=== PATIENT | female | born 2005 | race Hispanic/Latino ===

== ENCOUNTER 2023-10-18 19:34 | Emergency (ER) | payer OTHER, SELFPAY ==
[2023-10-18 20:56] LABS: Bilirubin Neg (Negative); Blood, Urine 25 (Negative); Clarity Cloudy (Clear); Glucose, Urine (Dipstick) Normal (Negative); Ketone, Urine Negative (Negative); Leukocyte 500 (Negative); Nitrite Negative (Negative); Protein, Urine (Dipstick) 15 mg/dl (Neg-Trace); Specific Gravity, Urine 1.015 (1.005-1.030)
[2023-10-18 20:57] LABS: Pregnancy Test - Urine (BHCG) POSITIVE (Negative); Pregu Control Background? CLEAR/WHITE (CLR/WHITE); Pregu Control Bar Appear? YES (CONTROL BAR); Specific Gravity 1.015 (1.002-1.036)
[2023-10-18 21:02] LABS: Bacteria/HPF 2+ HPF (None Seen); CAUTI Indications for Culture Pregnancy; Squamous Epithelial 21-50 HPF (0-3)
[2023-10-18 21:03] LABS: Urine Culture Reflex Yes Yes
== END 2023-10-18 22:02 | disposition home or self-care (01) ==
LOC: CSHERS 19:34
DX: O21.9 Vomiting of pregnancy, unspecified (principal); Z3A.00 Weeks of gestation of pregnancy not specified
CPT/HCPCS: 81001; 81025; 87086; 99284

== ENCOUNTER 2025-04-27 03:08 | Day surgery (SDC) | payer OTHER ==
[2025-04-27] MEDS ORDERED: hydrALAZINE 20 MG/ML VIAL SLOW IVP PRN (04:21)
[2025-04-27 05:15] VITALS: BMI 39.6
[2025-04-27] MEDS: Acetaminophen 500 MG TAB PO SCH (05:56)
== END 2025-04-27 10:13 | disposition home health service (06) ==
LOC: CSHLD/OP 03:08
PROVIDERS: ATTEND Family Medicine
DX: O47.1 False labor at or after 37 completed weeks of gestation (principal); O99.013 Anemia complicating pregnancy, third trimester; O99.213 Obesity complicating pregnancy, third trimester; E66.812 Obesity, class 2; Z3A.38 38 weeks gestation of pregnancy; Z79.899 Other long term (current) drug therapy
CPT/HCPCS: 76819; 99285